=== PATIENT | male | born 1990 | race Caucasian/White ===

== ENCOUNTER 2021-06-23 11:07 | Emergency (ER) | payer OTHER ==
[2021-06-23 12:54] LABS: CORONAVIRUS COVID-19 NAA NEGATIVE (NEGATIVE)
[2021-06-23] MEDS ORDERED: Acetaminophen 325 MG Tab PO ONE (14:26)
[2021-06-23] MEDS ORDERED: Amoxicillin/Clavulanate K 875-125 MG Tab PO ONE (15:01)
== END 2021-06-23 15:16 | disposition home or self-care (01) ==
LOC: DL.ED 11:07
DX: J03.90 Acute tonsillitis, unspecified (principal); Z72.0 Tobacco use; Z20.822 Contact with and (suspected) exposure to COVID-19
CPT/HCPCS: 0240U; 87081; 87430; 99282; 99283; A9270